=== PATIENT | male | born 1985 | race American Indian/Alaskan Native ===

== ENCOUNTER 2020-12-31 01:13 | Emergency (ER) | payer OTHER ==
[~2020-12-31] VITALS: Ht 180.3 cm; Wt 133.8 kg
[2020-12-31] MEDS ORDERED: GEODON60 MG PO (01:32)
[2020-12-31] MEDS ORDERED: GEODON40 MG PO (01:32)
[2020-12-31] MEDS ORDERED: MINIPRESS2 MG PO (01:33)
[2020-12-31] MEDS ORDERED: BENZTROPINE MES1 MG PO (01:33)
[2020-12-31] MEDS ORDERED: NEURONTIN 400400 M1 PO (01:33)
[2020-12-31] MEDS ORDERED: TRAZODONE HCL100 MG PO (01:34)
[2020-12-31 02:41] LABS: ABSOLUTE BASOPHILS 0.1 thou/uL (0.0-0.2); ABSOLUTE EOSINOPHILS 0.2 thou/uL (0.0-0.7); ABSOLUTE LYMPHOCYTES 1.7 thou/uL (0.8-5.3); ABSOLUTE MONOCYTES 0.7 thou/uL (0.0-1.2); BASOPHILS 0.6 %; EOSINOPHILS 1.9 %; HEMATOCRIT 39.6 % (42.0-52.0); HEMOGLOBIN 13.7 gm/dL (14.0-18.0); LYMPHOCYTES 16.2 %; MCH 30.2 pg (26.0-34.0); MCHC 34.7 g/dL (28.0-37.0); MCV 87.1 fL (80.0-100.0); MONOCYTES 6.2 %; MPV 7.5 fl. (7.2-11.1); NUCLEATED RBCS 0 /100WBC; PLATELET COUNT* 261 thou/uL (150-400); POLYS 75.1 %; RBC 4.55 mil/uL (4.50-6.00); RDW-CV 13.3 % (10.5-14.5); WBC 10.7 thou/uL (4.0-11.0)
[2020-12-31 02:55] LABS: CALCIUM 7.9 mg/dL (8.5-10.1); CREATININE 1.2 mg/dL (0.6-1.3)
[2020-12-31 02:57] LABS: POTASSIUM 2.8 mmol/L (3.5-5.1)
[2020-12-31 03:00] LABS: ALBUMIN 3.2 g/dL (3.4-5.0); TOTAL BILIRUBIN 0.5 mg/dL (<0.1-1.0); TOTAL PROTEIN 7.2 g/dL (6.4-8.2)
[2020-12-31 05:05] VITALS: BP 133/65
== END 2020-12-31 05:05 | disposition home or self-care (01) ==
LOC: M.ERS 01:13
PROVIDERS: Emergency Medicine
DX: E87.6 Hypokalemia (principal); R55 Syncope and collapse; I10 Essential (primary) hypertension; Z90.49 Acquired absence of other specified parts of digestive tract; Z98.890 Other specified postprocedural states; Z88.8 Allergy status to other drugs, medicaments and biological substances